=== PATIENT | female | born 1995 | race Caucasian/White ===

== ENCOUNTER 2019-04-04 02:31 | Emergency (ER) | payer BC ==
[2019-04-04] MEDS ORDERED: Ondansetron 4 MG Tab.DIS PO ONE ×2 (02:49→03:33)
--- NOTE | 2019-04-04 02:55 | EDM.PDOC ---
ED HPI GENERAL MEDICAL PROBLEM - General Chief Complaint: Gastrointestinal Problem Stated Complaint: vomiting Time Seen by Provider: 04/04/19 02:44 Source of Information: Reports: Patient History Limitations: Reports: No Limitations - History of Present Illness INITIAL COMMENTS - FREE TEXT/NARRATIVE: Patient comes into the emergency department with complaints of nausea, vomiting , and body aches. Patient states this is been going on for approximately 5-6 hours. Patient states that she's had severe nausea and has vomited multiple times. She states that she has continued to vomit every time she takes a sip of water. She also states that she has body aches and has been around individuals who have been ill. She states that she was at a family gathering last week with individuals who tested positive for influenza A. Patient states been relatively healthy other then her current concerns. Patient denies taking any ibuprofen or Tylenol for any pain and discomfort. She also denies any chest pain, shortness of breath, blurred vision, urinary concerns or peripheral edema. Quality: Reports: Other Severity: Moderate Improves with: Reports: None Worsens with: Reports: None Context: Reports: Other Associated Symptoms: Reports: Fever/Chills, Loss of Appetite, Malaise, Nausea/ Vomiting Abdomen Pain Score (Numeric/FACES): 6 - Related Data Allergies Allergy/AdvReac Type Severity Reaction Status Date / Time No Known Allergies Allergy Verified 04/04/19 02:35 Home Meds: Home Meds Desog-E.Estradiol/E.Estradiol [Desogestr-Eth Estrad Eth Estra] 1 tab PO DAILY [History] Past Medical History - Past Health History Medical/Surgical History: Denies Medical/Surgical History - Past Surgical History GI Surgical History: Reports: Appendectomy Social & Family History - Family History Family Medical History: Noncontributory - Tobacco Use Smoking Status *Q: Never Smoker - Caffeine Use Caffeine Use: Reports: None ED ROS GENERAL - Review of Systems Review Of Systems: See Below Constitutional: Reports: Fever, Chills, Malaise, Fatigue HEENT: Reports: No Symptoms Respiratory: Reports: No Symptoms Cardiovascular: Reports: No Symptoms Endocrine: Reports: No Symptoms : Reports: No Symptoms Musculoskeletal: Reports: No Symptoms Skin: Reports: No Symptoms Neurological: Reports: No Symptoms Psychiatric: Reports: No Symptoms Hematologic/Lymphatic: Reports: No Symptoms Immunologic: Reports: No Symptoms ED EXAM, GI/ABD - Physical Exam Exam: See Below Exam Limited By: No Limitations General Appearance: Alert, WD/WN, No Apparent Distress Head: Atraumatic, Normocephalic Neck: Normal Inspection, Supple, Non-Tender, Full Range of Motion Respiratory/Chest: No Respiratory Distress, Lungs Clear, Normal Breath Sounds, No Accessory Muscle Use, Chest Non-Tender Cardiovascular: Normal Peripheral Pulses, Regular Rate, Rhythm, No Edema, No Gallop, No JVD, No Murmur, No Rub GI/Abdominal Exam: Normal Bowel Sounds, Soft, Non-Tender, No Organomegaly, No Distention, No Abnormal Bruit, No Mass, Pelvis Stable Extremities: Normal Inspection, Normal Range of Motion, Non-Tender, Normal Capillary Refill, No Pedal Edema Neurological: Alert, Oriented, CN II-XII Intact, Normal Cognition, Normal Gait Psychiatric: Normal Affect Skin Exam: Warm, Dry, Intact, Normal Color, No Rash Course - Vital Signs Last Recorded V/S: Last Vital Signs Temp 36.2 C 04/04/19 02:32 Pulse 107 H 04/04/19 02:32 Resp 16 04/04/19 02:32 BP 123/76 04/04/19 02:32 Pulse Ox 98 04/04/19 02:32 - Orders/Labs/Meds Meds: Medications Discontinued Medications Generic Name Dose Route Start Last Admin Trade Name Gunnar PRN Reason Stop Dose Admin Ondansetron HCl 4 mg 04/04/19 02:49 04/04/19 03:13 Zofran Odt PO 04/04/19 02:50 4 mg ONETIME ONE Administration Ondansetron HCl 3 packet 04/04/19 03:32 Take Home: Ondansetron Odt 4 Mg, 2 Tab Pack PO 04/04/19 03:33 ONETIME ONE Ondansetron HCl 4 mg 04/04/19 03:33 Zofran Odt PO 04/04/19 03:34 ONETIME ONE Departure - Departure Time of Disposition: 03:40 Disposition: Home, Self-Care 01 Condition: Good Clinical Impression: Gastroenteritis, Vomiting - Discharge Information *PRESCRIPTION DRUG MONITORING PROGRAM REVIEWED*: Not Applicable *COPY OF PRESCRIPTION DRUG MONITORING REPORT IN PATIENT WENDY: Not Applicable Instructions: Viral Gastroenteritis, Adult, [id number], Nausea and Vomiting, Adult, [id number], Ondansetron oral dissolving tablet Referrals: PCPBrian [Primary Care Provider] - Forms: ED Department Discharge Additional Instructions: 1. rest 2. increase your oral intake slowly. If vomiting occurs return to drinking only sips for 1 hour and then increase from there 3. Information regarding gastroenteritis given 4. Activity and diet as tolerated 5. Follow up with your PCP as needed 6. Call with any questions or concerns Sepsis Event Note - Evaluation Sepsis Screening Result: No Definite Risk - Focused Exam Vital Signs: Vital Signs Temp Pulse Resp BP Pulse Ox 04/04/19 02:32 36.2 C 107 H 16 123/76 98 Date Exam was Performed: 04/04/19 Time Exam was Performed: 03:34 - Assessment/Plan Assessment:: 1. Gastroenteritis Plan: 1. Zofran 8mg ODT given in the ER to help with nausea 2. Influenza A and B screen completed emergency department 3. Education regarding activity, diet, [id number] medication modalities, proper handwashing, and follow-up care was provided to the patient 4. All questions and concerns were addressed patient prior to discharge
[2019-04-04] MEDS ORDERED: Take Home: Ondansetron 4 MG Tab.DIS, 2 Tab Pack PO ONE (03:32)
== END 2019-04-04 03:41 | disposition home or self-care (01) ==
LOC: VM.ED 02:31
DX: K52.9 Noninfective gastroenteritis and colitis, unspecified (principal); Z79.899 Other long term (current) drug therapy
CPT/HCPCS: 87804; 99284; A9270